=== PATIENT | female | born 1980 | race Caucasian/White ===

== ENCOUNTER 2016-12-14 19:45 | Emergency (ER) | payer MEDICAID ==
[~2016-12-14] VITALS: Ht 157.5 cm; Wt 97.5 kg
[2016-12-14 20:14] VITALS: BP 155/108
[2016-12-14] MEDS ORDERED: IMITREX25 MG PO (20:20)
--- NOTE | 2016-12-14 21:05 | NUR ---
PT TAKEN TO BED 5
--- NOTE | 2016-12-14 21:12 | NUR ---
PT IS A 36/F BIB BOYFRIEND. PATIENT C/O HEADACHE, DIZZINESS, N/V SINCE MONDAY. PATIENT WENT TO CLINIC FOR HEADACHE AND WAS GIVEN MEDICATION AND REFERRED TO [facility] [employer]. HX:MIGRAINE,HTN
--- NOTE | 2016-12-14 22:01 | NUR ---
Patient being evaluated by DR. MORFIN at bedside.
[2016-12-14] MEDS ORDERED: traMADol 50 MG TAB PO ONE (22:20)
[2016-12-15] MEDS ORDERED: LIDOCAINE 1% ED 50 ML ONE (00:09)
[2016-12-15] MEDS ORDERED: MECLIZINE 25 MG TAB PO ONE (00:15)
--- NOTE | 2016-12-15 00:15 | NUR ---
LUMBAR PUNCTURE DONE BY DR. MORFIN AT BEDSIDE WITH TAMAR SAUCEDO AND PT TOLERATED WELL. WILL CONTINUE TO MONITOR.
[2016-12-15] MEDS ORDERED: LIDOCAINE 1% 500 MG/50 ML VIAL INJ ONE (00:25)
--- NOTE | 2016-12-15 00:50 | NUR ---
Patient discharged with v/s stable. Written and verbal after care instructions given and explained. Patient alert, oriented and verbalized understanding of instructions. Ambulatory with steady gait. All questions addressed prior to discharge. ID band removed. Patient advised to follow up with PMD. Rx of ANTIVERT 25MG PO given. Patient educated on indication of medication including possible reaction and side effects. Opportunity to ask questions provided and answered.
[2016-12-15 00:53] VITALS: BP 138/82
== END 2016-12-15 00:50 | disposition home or self-care (01) ==
LOC: MED 19:45
DX: R42 Dizziness and giddiness (principal); R51 Headache; Z88.2 Allergy status to sulfonamides; Z88.1 Allergy status to other antibiotic agents
CPT/HCPCS: 62270; 99284; J2001; J8597

== ENCOUNTER 2016-12-16 09:33 | Emergency (ER) | payer MEDICAID ==
[~2016-12-16] VITALS: Ht 157.5 cm; Wt 97.1 kg
[~2016-12-16 09:33] MED LIST: IMITREX25 MG PO
[2016-12-16 09:57] VITALS: BP 163/105
--- NOTE | 2016-12-16 09:59 | NUR ---
36/F BIB FAMILY C/O HEADACHE & RADIATES TO UPPER BACK FOR 5 DAYS. PT DENIES ACCIDENT OR INJURY AT HEAD. PATIENT STATES CAME HERE 2 DAYS AGO W/ SAME PROBLEM .PT DENIES N/V/D AT THIS TIME; SKIN IS PINK/WARM/DRY; AAOX4; LUNGS CLEAR BL; HR EVEN AND REGULAR; PT DENIES ANY FEVER, CP, SOB, OR COUGH AT THIS TIME; PATIENT STATES PAIN OF 10/10 AT THIS TIME; VSS; PATIENT POSITIONED FOR COMFORT; HOB ELEVATED; BEDRAILS UP X2; BED DOWN. ER MD MADE AWARE OF PT STATUS.
--- NOTE | 2016-12-16 10:20 | NUR ---
DR GARCIA EVALUATING PT AT BEDSIDE
--- NOTE | 2016-12-16 10:35 | NUR ---
PT TAKEN TO CT VIA [facility] ACCOMPANIED BY ODD JOB LABORER.
[2016-12-16] MEDS: NACL 0.9% 1,000 ML IV ONE ×2 (10:58→11:07)
[2016-12-16] MEDS: METOCLOPRAMIDE 10 MG/2 ML INJ VIAL IVP ONE ×2 (10:59→11:07)
--- NOTE | 2016-12-16 11:19 | NUR ---
Patient appears to be resting comfortably in bed. Vital Signs within normal limits. Respirations even and unlabored. PT STATES PAIN DECREASED FROM 10/10 TO 6/10 AT THIS TIME AFTER ADMINISTRATION OF ORDERED MEDICATION REGLAN. FAMILY AT BEDSIDE. WILL CONTINUE TO MONITOR.
--- NOTE | 2016-12-16 11:27 | NUR ---
PT AMBULATED TO THE RESTROOM AT THIS TIME.
[2016-12-16] MEDS ORDERED: IBUPROFEN 800 MG TAB PO ONE (11:35)
--- NOTE | 2016-12-16 12:50 | NUR ---
IV removed, catheter intact and site benign. Applied folded 4x4 gauze and tape to stop bleeding.
[2016-12-16 13:00] VITALS: BP 140/75
--- NOTE | 2016-12-16 13:00 | NUR ---
Patient discharged with v/s stable. Written and verbal after care instructions given and explained. Patient alert, oriented and verbalized understanding of instructions. Ambulatory with steady gait. All questions addressed prior to discharge. ID band removed. Patient advised to follow up with PMD. Rx of FLEXERIL 10MG given. Patient educated on indication of medication including possible reaction and side effects. Opportunity to ask questions provided and answered.
== END 2016-12-16 13:00 | disposition home or self-care (01) ==
LOC: MED 09:33
DX: G43.909 Migraine, unspecified, not intractable, without status migrainosus (principal); F41.9 Anxiety disorder, unspecified; M62.838 Other muscle spasm; Z88.2 Allergy status to sulfonamides; Z88.1 Allergy status to other antibiotic agents
CPT/HCPCS: 36415; 70450; 80048; 81025; 85025; 96361; 96374; 99285; J2765; J7030

== ENCOUNTER 2017-02-22 | Emergency (ER) | payer MEDICAID ==
[~2017-02-22] VITALS: Ht 157.5 cm; Wt 92.5 kg
[~2017-02-22] MED LIST changes: +IMI25 PO; -IMITREX25 MG PO
[2017-02-22 00:20] VITALS: BP 135/89
--- NOTE | 2017-02-22 06:00 | NUR ---
PATIENT LEFT WITHOUT BEING SEEN BY DR. GARCIA. NO FURTHER CARE PROVIDED FOR PATIENT.
== END 2017-02-22 06:00 | disposition home or self-care (01) ==
LOC: MED
DX: R10.9 Unspecified abdominal pain (principal); Z53.21 Procedure and treatment not carried out due to patient leaving prior to being seen by health care provider
CPT/HCPCS: 81025; 99283

== ENCOUNTER 2017-10-22 10:35 | Emergency (ER) | payer MEDICAID ==
[~2017-10-22] VITALS: Ht 160 cm; Wt 98.1 kg
[2017-10-22 10:54] VITALS: BP 138/96
--- NOTE | 2017-10-22 11:02 | NUR ---
Patient ambulated to bed 12. RN evaluating patient at bedside.
--- NOTE | 2017-10-22 11:03 | NUR ---
Dr. Brooks evaluating patient at bedside.
--- NOTE | 2017-10-22 11:08 | NUR ---
PATIENT PRESENTS TO ED WITH C/O N/V/D SINCE LAST NIGHT WITH LOWER ABDOMINAL PAIN 10/10;DENIES ANY MEDICAL HX; SKIN IS PINK/WARM/DRY; AAOX4 WITH EVEN AND STEADY GAIT; LUNGS CLEAR BL; HR EVEN AND REGULAR; PT DENIES ANY FEVER, CP, SOB, OR COUGH AT THIS TIME; PATIENT STATES PAIN OF 10/10 AT THIS TIME;PATIENT POSITIONED FOR COMFORT; HOB ELEVATED; BEDRAILS UP X2; BED DOWN. ER MD MADE AWARE OF PT STATUS.
[2017-10-22] MEDS ORDERED: NACL 0.9% 1,000 ML IV SCH (11:09)
[2017-10-22] MEDS ORDERED: ONDANSETRON 4 MG/2 ML VIAL IVP ONE (11:10)
[2017-10-22] MEDS ORDERED: KETOROLAC 30 MG/ML VIAL IVP ONE (11:10)
[2017-10-22] MEDS ORDERED: MORPHINE SULFATE 2 MG/ML SYR IVP ONE (11:10)
[2017-10-22 11:36] LABS: BILIRUBIN,URINE NEGATIVE (NEGATIVE); BLOOD, URINE 1+ (NEGATIVE); COLOR,URINE YELLOW (YELLOW); LEUKOCYTE ESTERASE ,URINE 1+ (NEGATIVE); NITRITE, URINE NEGATIVE (NEGATIVE); UGLUCOSE NEGATIVE (NEGATIVE)
[2017-10-22 11:42] LABS: BASOPHILS # (AUTO) 0.1 K/uL (0.00-0.22); BASOPHILS % (AUTO) 1.3 % (0.0-2.0); EOSINOPHILS # (AUTO) 0.1 K/uL (0-0.4); EOSINOPHILS % (AUTO) 0.8 % (0.0-4.0); HEMATOCRIT 45.5 % (36-48); HEMOGLOBIN 14.7 g/dL (12.0-16.0); LYMPHOCYTES # (AUTO) 1.3 K/uL (2.5-16.5); LYMPHOCYTES % (AUTO) 14.4 % (20.5-51.1); MEAN CORPUSCULAR HEMOGLOBIN 28 pg (27-31); MEAN CORPUSCULAR HGB CONC 32 g/dL (33-37); MEAN CORPUSCULAR VOLUME 87 fL (80-94); MONOCYTES # (AUTO) 0.9 K/uL (0.8-1.0); MONOCYTES % (AUTO) 10.2 % (1.7-9.3); NEUTROPHILS # (AUTO) 6.8 K/uL (1.8-7.7); NEUTROPHILS % (AUTO) 73.3 % (42.2-75.2); PLATELET COUNT (AUTO) 185 K/uL (140-450); RED BLOOD CELL COUNT(AUTO) 5.25 MIL/uL (4.20-5.40); RED CELL DISTRIBUTION WIDTH 14.3 % (11.6-13.7); WHITE BLOOD COUNT (AUTO) 9.2 K/uL (4.8-10.8)
[2017-10-22 11:54] LABS: APPEARANCE,URINE HAZY (CLEAR)
[2017-10-22 11:58] LABS: RBC,URINE 3-10 (FEW) /HPF (0-5)
--- NOTE | 2017-10-22 12:07 | NUR ---
Patient taken to CT scan via wheelchair by tech.
[2017-10-22 12:09] LABS: ANION GAP 12.5 (8-16); CARBON DIOXIDE 26.2 mmol/L (21-32); CREATININE 0.9 mg/dL (0.6-1.3); POTASSIUM 3.7 mmol/L (3.5-5.1)
[2017-10-22 12:11] LABS: BARBITURATE, URINE NEG. ng/ml (NEG <=200); BENZODIAZEPINE, URINE NEG. ng/mL (NEG <=200); CANNABINOID, URINE NEG. ng/mL (NEG <=50); COCAINE, URINE NEG. ng/mL (NEG <=300); OPIATE, URINE NEG. ng/mL (NEG <=2000); PHENCYCLIDINE SCREEN,URINE NEG. ng/mL (NEG <=25)
[2017-10-22 12:15] LABS: ALBUMIN 3.2 g/dL (3.4-5.0); TOTAL BILIRUBIN 0.6 mg/dL (0.0-1.0)
[2017-10-22 14:16] VITALS: BP 139/98
--- NOTE | 2017-10-22 14:16 | NUR ---
Patient discharged with v/s stable. Written and verbal after care instructions given and explained. Patient alert, oriented and verbalized understanding of instructions. Ambulatory with steady gait. All questions addressed prior to discharge. ID band removed. Patient advised to follow up with PMD. Rx of FLOMAX,TRAMADOL AND LEVSIN given. Patient educated on indication of medication including possible reaction and side effects. Opportunity to ask questions provided and answered.
== END 2017-10-22 14:21 | disposition home or self-care (01) ==
LOC: MED 10:35
DX: N23 Unspecified renal colic (principal); N20.1 Calculus of ureter; R03.0 Elevated blood-pressure reading, without diagnosis of hypertension; Z79.899 Other long term (current) drug therapy; Z88.2 Allergy status to sulfonamides; Z88.8 Allergy status to other drugs, medicaments and biological substances
CPT/HCPCS: 36415; 74176; 80053; 80305; 81001; 82150; 83690; 84703; 85025; 87086; 96361; 96374; 96375; 99285; J1885; J2270; J2405; J7030

== ENCOUNTER 2018-01-16 12:35 | Emergency (ER) | payer SELFPAY ==
[~2018-01-16] VITALS: Ht 157.5 cm; Wt 97.7 kg
[2018-01-16 12:39] VITALS: BP 140/91
[2018-01-16 13:28] LABS: BASOPHILS # (AUTO) 0.2 K/uL (0.00-0.22); BASOPHILS % (AUTO) 1.7 % (0.0-2.0); EOSINOPHILS # (AUTO) 0.1 K/uL (0-0.4); HEMATOCRIT 46.9 % (36-48); HEMOGLOBIN 15.3 g/dL (12.0-16.0); LYMPHOCYTES # (AUTO) 1.5 K/uL (2.5-16.5); LYMPHOCYTES % (AUTO) 11.5 % (20.5-51.1); MEAN CORPUSCULAR HEMOGLOBIN 28 pg (27-31); MEAN CORPUSCULAR HGB CONC 33 g/dL (33-37); MEAN CORPUSCULAR VOLUME 86 fL (80-94); MONOCYTES # (AUTO) 0.8 K/uL (0.8-1.0); MONOCYTES % (AUTO) 6.5 % (1.7-9.3); NEUTROPHILS # (AUTO) 10.2 K/uL (1.8-7.7); NEUTROPHILS % (AUTO) 79.3 % (42.2-75.2); PLATELET COUNT (AUTO) 212 K/uL (140-450); RED BLOOD CELL COUNT(AUTO) 5.43 MIL/uL (4.20-5.40); RED CELL DISTRIBUTION WIDTH 14.5 % (11.6-13.7); WHITE BLOOD COUNT (AUTO) 12.8 K/uL (4.8-10.8)
[2018-01-16 13:48] LABS: APPEARANCE,URINE HAZY (CLEAR); BILIRUBIN,URINE NEGATIVE (NEGATIVE); BLOOD, URINE TRACE-I (NEGATIVE); COLOR,URINE YELLOW (YELLOW); LEUKOCYTE ESTERASE ,URINE TRACE (NEGATIVE); NITRITE, URINE NEGATIVE (NEGATIVE); PH,URINE 5.5 (5.0-9.0); UGLUCOSE NEGATIVE (NEGATIVE)
[2018-01-16 13:49] LABS: ALBUMIN 3.8 g/dL (3.4-5.0); ANION GAP 12.5 (8-16); CARBON DIOXIDE 27.8 mmol/L (21-32); CREATININE 0.9 mg/dL (0.6-1.3); POTASSIUM 4.3 mmol/L (3.5-5.1); TOTAL BILIRUBIN 0.4 mg/dL (0.0-1.0)
[2018-01-16 13:59] LABS: RBC,URINE 0-5 (RARE) /HPF (0-5)
--- NOTE | 2018-01-16 14:30 | NUR ---
C/O SUDDEN ONSET OF HEADACHE DIZZINESS X 2 DAYS OS WITH SUBCONJUCTIVAL HEMORRHAGE ALSO LEFT EAR PAIN . DENIES N/V/D; SKIN IS PINK/WARM/DRY; AAOX4 WITH EVEN AND STEADY GAIT; LUNGS CLEAR BL; HR EVEN AND REGULAR; PT DENIES ANY FEVER, CP, SOB, OR COUGH AT THIS TIME; PATIENT STATES PAIN OF 8/10 AT THIS TIME; VSS; ER MD MADE AWARE OF PT STATUS.
--- NOTE | 2018-01-16 16:20 | NUR ---
PT ELOPED, ACCOMPANIED BY PT'S .
== END 2018-01-16 16:20 | disposition left against medical advice (07) ==
LOC: MED 12:35
DX: H11.32 Conjunctival hemorrhage, left eye (principal); F41.9 Anxiety disorder, unspecified; I10 Essential (primary) hypertension; Z88.2 Allergy status to sulfonamides; Z88.8 Allergy status to other drugs, medicaments and biological substances; Z79.899 Other long term (current) drug therapy
CPT/HCPCS: 36415; 80053; 81001; 85025; 87086; 99284

== ENCOUNTER 2018-04-11 08:40 | Emergency (ER) | payer OTHER, MEDICAID ==
[~2018-04-11] VITALS: Ht 157.5 cm; Wt 100.7 kg
[2018-04-11 08:41] VITALS: BP 139/91
--- NOTE | 2018-04-11 08:47 | NUR ---
PT AMBULATED TO BED 3
--- NOTE | 2018-04-11 08:50 | NUR ---
37F BIB SELF WITH C/O C/O 5/10 NON RADIATING RIGHT SIDED HEADACHCE AND RT SIDE PAIN S/P MECH FALL 4 DAYS AGO. PATIENT STATES SHE WAS WALKING AT WORK, THE FLOOR WAS SLIPPERLY, PATIENT SLIPPED TO HER SIDE, AND LANDED ON HER RIGHT SIDE. PT DENIES LOC OR SOB. PATIENT REPORTED DIZZINESS, BUT DENIES CURRENTLY. PATIENT REPORTS NAUSEA, NO VOMITING. -BRUISING, -SWELLING, -DEFORMITY. PT AOX4 WITH STEADY GAIT. RR ARE EVEN AND UNLABORED. PATIENT CHANGED INTO GOWN. AWAITING ER MD MIRELES. ALL NEEDS MET AT THIS TIME. WILL CONTINUE TO MONITOR.
--- NOTE | 2018-04-11 09:18 | NUR ---
PT TO XRAY VIA W/C ACCOMPANIED BY RETOUCHING OPERATOR
[2018-04-11 10:00] VITALS: BP 140/81
== END 2018-04-11 10:00 | disposition home or self-care (01) ==
LOC: MED 08:40
DX: S00.93XA Contusion of unspecified part of head, initial encounter (principal); S20.211A Contusion of right front wall of thorax, initial encounter; S30.0XXA Contusion of lower back and pelvis, initial encounter; I10 Essential (primary) hypertension; G43.909 Migraine, unspecified, not intractable, without status migrainosus; Z88.1 Allergy status to other antibiotic agents; Z88.8 Allergy status to other drugs, medicaments and biological substances; W01.0XXA Fall on same level from slipping, tripping and stumbling without subsequent striking against object, initial encounter; Y93.89 Activity, other specified; Y99.8 Other external cause status; Y92.89 Other specified places as the place of occurrence of the external cause
CPT/HCPCS: 71046; 72100; 81002; 81025; 99284

== ENCOUNTER 2020-01-08 14:42 | Emergency (ER) | payer MEDICAID, OTHER ==
[~2020-01-08] VITALS: Ht 157.5 cm; Wt 107.0 kg
[2020-01-08 14:51] VITALS: BP 106/66
--- NOTE | 2020-01-08 15:00 | NUR ---
In ER bed 7 C/O Abd pain MD to see
[2020-01-08] MEDS: KETOROLAC 30 MG/ML VIAL IM ONE (16:17)
[2020-01-08] MEDS: ONDANSETRON 4 MG ODT PO ONE (16:18)
--- NOTE | 2020-01-08 17:15 | NUR ---
Stable. VSS. Minimal pain. All diagnostics completed. Awaiting dispo
--- NOTE | 2020-01-08 18:19 | NUR ---
Patient discharged with v/s stable. Written and verbal after care instructions given and explained. Patient alert, oriented and verbalized understanding of instructions. Ambulatory with steady gait. All questions addressed prior to discharge. ID band removed. Patient advised to follow up with PMD. Rx of ZOFRAN AND NAPROXEN given. Patient educated on indication of medication including possible reaction and side effects. Opportunity to ask questions provided and answered.
[2020-01-08 18:30] VITALS: BP 118/66
== END 2020-01-08 18:19 | disposition home or self-care (01) ==
LOC: MED 14:42
DX: R10.812 Left upper quadrant abdominal tenderness (principal); I10 Essential (primary) hypertension; Z88.2 Allergy status to sulfonamides; Z79.899 Other long term (current) drug therapy
CPT/HCPCS: 76856; 81002; 81025; 93976; 96372; 99284; J1885; Q0092; Q0162

== ENCOUNTER 2021-07-24 00:36 | Emergency (ER) | payer MEDICAID ==
[~2021-07-24] VITALS: Ht 157.5 cm; Wt 104.8 kg
[2021-07-24 00:51] VITALS: BP 144/87
--- NOTE | 2021-07-24 00:54 | NUR ---
TO LOBBY A/W BED AMBULATORY
[2021-07-24 03:33] LABS: BASOPHILS # (AUTO) 0.3 K/uL (0.00-0.22); BASOPHILS % (AUTO) 2.3 % (0.0-2.0); EOSINOPHILS # (AUTO) 0.1 K/uL (0-0.4); EOSINOPHILS % (AUTO) 0.8 % (0.0-4.0); HEMOGLOBIN 13.8 g/dL (12.0-16.0); LYMPHOCYTES # (AUTO) 1.6 K/uL (2.5-16.5); LYMPHOCYTES % (AUTO) 12.7 % (20.5-51.1); MEAN CORPUSCULAR HEMOGLOBIN 31 pg (27-31); MEAN CORPUSCULAR HGB CONC 33 g/dL (33-37); MEAN CORPUSCULAR VOLUME 94.4 fL (80-94); MONOCYTES # (AUTO) 0.9 K/uL (0.8-1.0); MONOCYTES % (AUTO) 7.2 % (1.7-9.3); NEUTROPHILS # (AUTO) 9.5 K/uL (1.8-7.7); PLATELET COUNT (AUTO) 200 K/uL (140-450); RED BLOOD CELL COUNT(AUTO) 4.45 MIL/uL (4.20-5.40); RED CELL DISTRIBUTION WIDTH 17.7 % (11.6-13.7); WHITE BLOOD COUNT (AUTO) 12.4 K/uL (4.8-10.8)
[2021-07-24 03:50] LABS: ALBUMIN 3.8 g/dL (3.4-5.0); CARBON DIOXIDE 29.5 mmol/L (21-32); CREATININE 1.3 mg/dL (0.6-1.3); POTASSIUM 4.5 mmol/L (3.5-5.1); TOTAL BILIRUBIN 0.3 mg/dL (0.0-1.0)
[2021-07-24] MEDS ORDERED: METH-1681 PO (05:32)
[2021-07-24 05:49] VITALS: BP 144/87
--- NOTE | 2021-07-24 05:50 | NUR ---
Patient discharged with v/s stable. Written and verbal after care instructions given and explained. Patient verbalized understanding. Ambulatory with steady gait. All questions addressed prior to discharge. Advised to follow up with PMD.
== END 2021-07-24 05:45 | disposition home or self-care (01) ==
LOC: MED 00:36
DX: N64.4 Mastodynia (principal); I10 Essential (primary) hypertension; Z88.1 Allergy status to other antibiotic agents; Z88.2 Allergy status to sulfonamides; Z79.899 Other long term (current) drug therapy
CPT/HCPCS: 36415; 71045; 80053; 83880; 84484; 85025; 93005; 99285